=== PATIENT | female | born 1965 | race Caucasian/White ===

== ENCOUNTER 2019-01-16 10:47 | Emergency (ER) | payer OTHER ==
[~2019-01-16] VITALS: Ht 157.4 cm; Wt 87.1 kg
[2019-01-16] MEDS ORDERED: DOXYCYCLINE100 M3 PO (11:20)
== END 2019-01-16 13:08 | disposition home or self-care (01) ==
LOC: ED 10:47
DX: S33.5XXA Sprain of ligaments of lumbar spine, initial encounter (principal); S00.83XA Contusion of other part of head, initial encounter; S00.81XA Abrasion of other part of head, initial encounter; L08.9 Local infection of the skin and subcutaneous tissue, unspecified; Z88.0 Allergy status to penicillin; W17.89XA Other fall from one level to another, initial encounter; Y93.89 Activity, other specified; Y92.89 Other specified places as the place of occurrence of the external cause; Y99.8 Other external cause status

== ENCOUNTER 2021-08-03 08:07 | Emergency (ER) | payer OTHER ==
[~2021-08-03] VITALS: Wt 72.6 kg
[~2021-08-03 08:07] MED LIST: DOXYCYCLINE100 M3 PO
[2021-08-03] MEDS ORDERED: BENZONATATE100 M1 PO (08:40)
[2021-08-03] MEDS ORDERED: XANAX1 MG PO (08:41)
[2021-08-03] MEDS ORDERED: DOXEPIN25 MG PO (08:42)
[2021-08-03] MEDS ORDERED: CYMBALTA60 MG PO (08:42)
[2021-08-03] MEDS ORDERED: LAMICTAL200 MG PO (08:43)
[2021-08-03] MEDS ORDERED: LIPITOR40 MG PO (08:44)
[2021-08-03] MEDS ORDERED: LATU40TA1 PO (08:44)
[2021-08-03] MEDS ORDERED: ESTRACE1 MG PO (08:45)
[2021-08-03] MEDS ORDERED: GOOD NEIGHBOR L10 MG PO (08:45)
== END 2021-08-03 10:37 | disposition home or self-care (01) ==
LOC: ED 08:07
DX: S00.451A Superficial foreign body of right ear, initial encounter (principal); W45.8XXA Other foreign body or object entering through skin, initial encounter; Y93.89 Activity, other specified; Y92.89 Other specified places as the place of occurrence of the external cause; Y99.8 Other external cause status